=== PATIENT | female | born 1970 | race African-American/Black ===

== ENCOUNTER 2020-02-17 17:07 | Emergency (ER) | payer MEDICAID ==
[~2020-02-17] VITALS: Ht 162.6 cm; Wt 86.2 kg
[2020-02-17 17:11] VITALS: BP 115/76
== END 2020-02-17 17:39 | disposition home or self-care (01) ==
LOC: MED 17:07
DX: H66.92 Otitis media, unspecified, left ear (principal); M54.6 Pain in thoracic spine
CPT/HCPCS: 81002; 81025; 99283